=== PATIENT | female | born 1985 | race Caucasian/White ===

== ENCOUNTER 2018-08-12 22:38 | Emergency (ER) | payer MEDICAID ==
[2018-08-12] MEDS ORDERED: CEPHALEXIN 500 MG CAPSULE PO STA (22:56)
--- NOTE | 2018-08-12 22:56 | Emergency Department Record ---
History of Present Illness - General Chief complaint: Toothache Stated complaint: DENTAL PAIN/INFECTION Time Seen by Provider: 08/12/18 22:54 Source: Patient Mode of Arrival: Ambulatory Limitations: No limitations - History of Present Illness Initial comments: 32 yo female presents to ED for evaluation of pain and swelling to the right upper gingival for the past 2-3 days. Patient reports a history of a broken tooth to the affected area, denies fevers, chills, or recent trauma. Patient reports that she does not see a dentist her in the area. MD complaint: Tooth pain Onset/Timin -: Days(s) Location: Upper lip Severity: Moderate Severity scale (1-10): 7 Quality: Aching Consistency: Constant, Getting worse Improves with: Cold therapy Worsens with: Eating Context- Dental: History of dental caries, Poor dental care - Related Data Previous Rx's Medication Instructions Recorded Cephalexin [Keflex] 500 mg PO TID #20 cap 08/12/18 Travel Screening - Travel/Exposure Within Last 30 Days Have you traveled within the last 30 days?: No - Travel Symptoms Symptom Screening: None Review of Systems Constitutional: Denies: Chills, Fever, Malaise, Night sweats Eyes: Denies: Eye discharge, Eye pain ENT: Reports: Dental pain. Denies: Congestion, Ear pain Respiratory: Denies: Cough, Dyspnea Cardiovascular: Denies: Chest pain, Dyspnea on exertion Endocrine: Denies: Fatigue, Heat or cold intolerance Gastrointestinal: Denies: Abdominal pain, Vomiting Genitourinary: Denies: Incontinence, Retention Skin: Denies: Bruising, Change in color Neurological: Denies: Abnormal gait, Confusion, Headache, Seizure Psychiatric: Denies: Anxiety Hematological/Lymphatic: Denies: Anemia, Blood Clots Physical Exam - General General Appearance: Alert, Oriented x3, Cooperative, Moderate distress Limitations: No limitations - Head Head exam: Atraumatic, Normocephalic, Normal inspection Head exam detail: negative: Abrasion, Contusion, Liu's sign, General tenderness, Hematoma, Laceration - Eye Eye exam: Normal appearance. negative: Conjunctival injection, Periorbital swelling, Periorbital tenderness, Scleral icterus - ENT Ear exam: negative: Auricular hematoma, Auricular trauma Nasal Exam: negative: Active bleeding, Discharge, Dried blood, Foreign body Mouth exam: negative: Drooling, Laceration, Muffled voice, Tongue elevation Teeth exam: Gingival enlargement. negative: Dental caries, Dental tenderness # Image of Mouth/Teeth: 1 - Fractured tooth with mild gingival STS, no fluctuance present. - Neck Neck exam: Normal inspection. negative: Meningismus, Tenderness - Respiratory Respiratory exam: Normal lung sounds bilaterally. negative: Rales, Respiratory distress, Rhonchi, Stridor - Cardiovascular Cardiovascular Exam: Regular rate, Normal rhythm, Normal heart sounds - GI/Abdominal GI/Abdominal exam: Soft. negative: Rebound, Rigid, Tenderness - Rectal Rectal exam: Deferred - exam: Deferred - Extremities Extremities exam: Normal inspection. negative: Pedal edema, Tenderness - Back Back exam: Denies: CVA tenderness (R), CVA tenderness (L) - Neurological Neurological exam: Alert, Normal gait, Oriented X3 - Psychiatric Psychiatric exam: Normal affect, Normal mood - Skin Skin exam: Normal color. negative: Abrasion Type of lesion: negative: abrasion Course Vital Signs 08/12/18 22:46 Temperature 99.4 F Pulse Rate [ 99 H Pulse Ox Probe] Respiratory 20 Rate Blood Pressure 157/101 [Left Arm] Pulse Ox 97 - Reevaluation(s) Reevaluation #1: 08/12/18 23:00 Procedure Note: See nerve block note Patient reports almost immediate relief in her dental pain symptoms, appears stable for discharge on Keflex (numerous patient allergies). Dental referral sheet was given prior to discharge as well. Procedures - Nerve Block Consent Obtained: Verbal consent Time Out Performed: Yes Local Anesthetic Used: Marcaine 0.25% Amount of anesthesia used: 1.5 Side: Right Intraoral Nerve Block: Superior alveolar Procedure Successful: Yes Complications: None Patient Tolerated Procedure: Good Disposition Disposition: Discharge Clinical Impression: Dental abscess Disposition: Home, Self-Care Condition: (2) Stable Instructions: Dental Abscess (ED) Additional Instructions: Return to ED if your symptoms worsen or if you have any concerns. Keflex as directed. Follow-up with a dentist from the referral sheet in 1-3 days as directed. Prescriptions: Cephalexin [Keflex] 500 mg PO TID #20 cap Forms: Patient Portal Access Time of Disposition: 22:55 Quality - Quality Measures Quality Measures: N/A - Blood Pressure Screening Does Patient Have Any of the Following: No Blood Pressure Classification: Hypertensive Reading Systolic Measurement: 157 Diastolic Measurement: 101 Screening for High Blood Pressure: < First Hypertensive BP, F/U Documented > [ G8950] First Hypertensive Follow-up Interventions: Referral to alternative/primary care provider.
== END 2018-08-12 23:10 | disposition home or self-care (01) ==
LOC: ER 22:38
DX: K04.7 Periapical abscess without sinus (principal); F17.210 Nicotine dependence, cigarettes, uncomplicated
CPT/HCPCS: 64400; 99283

== ENCOUNTER 2018-09-27 22:30 | Emergency (ER) | payer MEDICAID ==
[2018-09-27] MEDS ORDERED: NEOMYCIN/POLYMYXIN B SULF/HC 10ML BTL OT ONE (22:40)
--- NOTE | 2018-09-27 22:41 | Emergency Department Record ---
History of Present Illness - General Chief complaint: ENT Stated complaint: EAR [email or web address].[email or web address] Time Seen by Provider: 09/27/18 22:39 Source: Patient Mode of Arrival: Ambulatory Limitations: No limitations - History of Present Illness Initial comments: 32 yo female presents to ED for evaluation of low-grade fevers and pain to the right ear that began several days ago. Patient denies drainage from the ear, and patient denies change in hearing. Patient did take Tylenol for her symptoms which did not significantly improve her symptoms. Patient reports pain with palpation to the pinna of the right ear as well as the tragus. MD complaint: Ear pain -: Days(s) Location: R ear Severity: Moderate Quality: Aching Consistency: Constant Improves with: Other (Tylenol) Worsens with: Other (palpation) - Related Data Previous Rx's Medication Instructions Recorded Cephalexin [Keflex] 500 mg PO TID #20 cap 08/12/18 Allergies Allergy/AdvReac Type Severity Reaction Status Date / Time amoxicillin Allergy HIVES Verified 08/12/18 23:00 Sulfa (Sulfonamide Allergy ANAPHYLAXIS Verified 08/12/18 23:00 Antibiotics) sulfamethoxazole Allergy ANAPHYLAXIS Verified 08/12/18 23:00 [From Bactrim] trimethoprim [From Bactrim] Allergy ANAPHYLAXIS Verified 08/12/18 23:00 desvenlafaxine [From Pristiq] AdvReac ITCHING Verified 08/12/18 23:01 erythromycin base AdvReac HIVES Verified 08/12/18 23:00 Penicillins AdvReac HIVES Verified 08/12/18 23:00 Review of Systems Constitutional: Denies: Chills, Fever, Malaise, Night sweats Eyes: Denies: Eye discharge, Eye pain ENT: Reports: Ear pain. Denies: Congestion, Epistaxis Respiratory: Denies: Cough, Dyspnea Cardiovascular: Denies: Chest pain, Dyspnea on exertion Endocrine: Denies: Fatigue, Heat or cold intolerance Gastrointestinal: Denies: Abdominal pain, Nausea, Vomiting Genitourinary: Denies: Incontinence, Retention Musculoskeletal: Denies: Arthralgia, Back pain Skin: Denies: Bruising, Change in color Neurological: Denies: Abnormal gait, Confusion, Headache, Seizure Psychiatric: Denies: Anxiety Hematological/Lymphatic: Denies: Anemia, Blood Clots Past Medical History - SOCIAL HISTORY Smoking Status: Heavy tobacco smoker (>10/day) Drug Use: None - RESPIRATORY Hx Respiratory Disorders: Yes Hx Asthma: Yes - CARDIOVASCULAR Hx Cardio Disorders: No - NEURO Hx Neuro Disorders: Yes Hx Dizziness: Yes (vertigo) Hx Headaches: Yes Hx Seizures: Yes (febrile seizure @ 1 year old) - GI Hx GI Disorders: Yes Hx Crohn's Disease: Yes Hx Obstructive Bowel: Yes (sm. bowel sx) - Hx Genitourinary Disorders: No - ENDOCRINE Hx Endocrine Disorders: No - MUSCULOSKELETAL Hx Musculoskeletal Disorders: Yes Comment:: scoliosis - PSYCH Hx Psych Problems: Yes Hx Anxiety: Yes Hx Behavior Problems: Yes (ADHD) Hx Depression: Yes Comment:: PTSD, bipolar, borderline personality disorder - HEMATOLOGY/ONCOLOGY Hx Hematology/Oncology Disorders: No Family Medical History Family Hx Comment (NOT TO BE USED IN PLACE OF ITEMS BELOW): mom-ulcerative colitis. father and brother ADHD. sister-"brittle bones" Hx Resp Disorders: Mother Physical Exam - General General Appearance: Alert, Oriented x3, Cooperative, Mild distress Limitations: No limitations - Head Head exam: Atraumatic, Normocephalic, Normal inspection Head exam detail: negative: Abrasion, Contusion, Liu's sign, General tenderness, Hematoma, Laceration - Eye Eye exam: Normal appearance. negative: Conjunctival injection, Periorbital swelling, Periorbital tenderness, Scleral icterus - ENT ENT exam: TM's normal bilaterally Ear exam: External canal tenderness (Right). negative: Auricular hematoma, Auricular trauma Nasal Exam: negative: Active bleeding, Discharge, Dried blood, Foreign body Mouth exam: negative: Drooling, Laceration, Muffled voice, Tongue elevation - Neck Neck exam: Normal inspection. negative: Meningismus, Tenderness - Respiratory Respiratory exam: Normal lung sounds bilaterally. negative: Rales, Respiratory distress, Rhonchi, Stridor - Cardiovascular Cardiovascular Exam: Regular rate, Normal rhythm, Normal heart sounds - GI/Abdominal GI/Abdominal exam: Soft. negative: Rebound, Rigid, Tenderness - Rectal Rectal exam: Deferred - exam: Deferred - Extremities Extremities exam: Normal inspection. negative: Pedal edema, Tenderness - Back Back exam: Denies: CVA tenderness (R), CVA tenderness (L) - Neurological Neurological exam: Alert, Normal gait, Oriented X3 - Psychiatric Psychiatric exam: Normal affect, Normal mood - Skin Skin exam: Normal color. negative: Abrasion Type of lesion: negative: abrasion Course - Reevaluation(s) Reevaluation #1: 09/27/18 22:48 No evidence for otitis media on examination No erythema or abscess present surrounding the pinna/right ear ? external canal tenderness on examination. Will treat with with Cortisporin ear qttps as directed. Patient appears stable for discharge at this time. Disposition Disposition: Discharge Clinical Impression: Otitis externa Qualifiers: Otitis externa type: unspecified type Chronicity: acute Laterality: right Qualified Code(s): H60.501 - Unspecified acute noninfective otitis externa, right ear Disposition: Home, Self-Care Condition: (2) Stable Instructions: Otitis Externa (ED) Additional Instructions: Return to ED if your symptoms worsen or if you have any concerns. Cortisporin drops as directed. Follow-up with your family doctor in 3-5 days as directed. Forms: Patient Portal Access Time of Disposition: 22:41 Quality - Quality Measures Quality Measures: N/A - Blood Pressure Screening Does Patient Have Any of the Following: No Blood Pressure Classification: Hypertensive Reading Systolic Measurement: 134 Diastolic Measurement: 114 Screening for High Blood Pressure: < First Hypertensive BP, F/U Documented > [ G8950] First Hypertensive Follow-up Interventions: Referral to alternative/primary care provider.
== END 2018-09-27 22:55 | disposition home or self-care (01) ==
LOC: ER 22:30
DX: H60.501 Unspecified acute noninfective otitis externa, right ear (principal); F17.210 Nicotine dependence, cigarettes, uncomplicated
CPT/HCPCS: 99282

== ENCOUNTER 2018-10-17 11:55 | Emergency (ER) | payer SELFPAY ==
[2018-10-17] MEDS ORDERED: DOXYCYCLINE HYCLATE 100 MG CAPSULE PO ONE (12:05)
--- NOTE | 2018-10-17 12:11 | Emergency Department Record ---
History of Present Illness - General Chief Complaint: Cough Stated Complaint: Cough, SOB, Flu like Time Seen by Provider: 10/17/18 12:05 Source: Patient, Family Mode of Arrival: Ambulatory - History of Present Illness Initial Comments: 32 yo female presents with cough, congestion, green sputum for about a week. She has underlying asthma and smokes. No blood in the sputum. No vomiting or diarrhea. Her TMax was 103 three days ago. No fever the last three days. No rash. She states it is sore to cough. No leg pain, calf pain or swelling. She does have her asthma medications at home. She did not have a flu shot this year. MD Complaint: Cough, Fever, Nasal congestion, Rhinorrhea Onset/Timin -: Days(s) (7) Severity: Moderate Severity scale (1-10): 9 Quality: Aching Consistency: Constant Improves With: Nothing Worsens With: Other (cough) Context: Sick contacts Associated Symptoms: Cough, Fever Treatments Prior to Arrival: None - Related Data Previous Rx's Medication Instructions Recorded Benzonatate [Tessalon] 2 cap PO Q8H PRN #20 cap 10/17/18 Doxycycline Hyclate 100 mg PO BID #14 tab. 10/17/18 Prednisone [Prednisone 20Mg] 20 mg PO BID #10 tab 10/17/18 Allergies Allergy/AdvReac Type Severity Reaction Status Date / Time amoxicillin Allergy HIVES Verified 10/17/18 12:05 escitalopram [From Lexapro] Allergy HIVES Verified 10/17/18 12:05 Sulfa (Sulfonamide Allergy ANAPHYLAXIS Verified 10/17/18 12:05 Antibiotics) sulfamethoxazole Allergy ANAPHYLAXIS Verified 10/17/18 12:05 [From Bactrim] trimethoprim [From Bactrim] Allergy ANAPHYLAXIS Verified 10/17/18 12:05 desvenlafaxine [From Pristiq] AdvReac ITCHING Verified 10/17/18 12:05 erythromycin base AdvReac HIVES Verified 10/17/18 12:05 Penicillins AdvReac HIVES Verified 10/17/18 12:05 Travel Screening - Travel/Exposure Within Last 30 Days Have you traveled within the last 30 days?: No - Travel/Exposure Within Last Year Have you traveled outside the [place] in the last year?: No - Additonal Travel Details Have you been exposed to anyone with a communicable illness?: No - Travel Symptoms Symptom Screening: None Review of Systems Constitutional: Reports: Chills, Fever, Malaise, Weakness Eyes: Denies: Eye discharge, Eye pain, Vision change ENT: Reports: Congestion. Denies: Ear pain, Throat pain Respiratory: Reports: Cough. Denies: Dyspnea, Hemoptysis, Stridor Cardiovascular: Reports: Chest pain (hurts to cough). Denies: Palpitations, Syncope Endocrine: Reports: Fatigue Gastrointestinal: Denies: Abdominal pain, Diarrhea, Nausea, Vomiting Genitourinary: Denies: Dysuria, Urgency Musculoskeletal: Denies: Arthralgia, Back pain, Joint swelling, Myalgia Skin: Denies: Bruising, Change in color, Rash Neurological: Denies: Headache Psychiatric: Denies: Anxiety Hematological/Lymphatic: Denies: Blood Clots, Easy bleeding, Easy bruising, Swollen glands Past Medical History - SOCIAL HISTORY Smoking Status: Heavy tobacco smoker (>10/day) Alcohol Use: Occasional Drug Use: None - RESPIRATORY Hx Respiratory Disorders: Yes Hx Asthma: Yes Hx Bronchitis: Yes Hx Pneumonia: Yes - CARDIOVASCULAR Hx Cardio Disorders: Yes Hx Hypertension: Yes (on and off) - NEURO Hx Neuro Disorders: Yes Hx Dizziness: Yes (vertigo) Hx Headaches: Yes Hx Seizures: Yes (febrile seizure @ 1 year old) - GI Hx GI Disorders: Yes Hx Crohn's Disease: Yes Hx Obstructive Bowel: Yes (sm. bowel sx) - Hx Genitourinary Disorders: No - ENDOCRINE Hx Endocrine Disorders: No - MUSCULOSKELETAL Hx Musculoskeletal Disorders: Yes Comment:: scoliosis - PSYCH Hx Psych Problems: Yes Hx Anxiety: Yes Hx Behavior Problems: Yes (ADHD) Hx Depression: Yes Comment:: PTSD, bipolar, borderline personality disorder - HEMATOLOGY/ONCOLOGY Hx Hematology/Oncology Disorders: No Family Medical History Any Significant Family History?: Yes Family Hx Comment (NOT TO BE USED IN PLACE OF ITEMS BELOW): mom-ulcerative colitis. father and brother ADHD. sister-"brittle bones" Hx Resp Disorders: Mother Physical Exam - General General Appearance: Alert, Oriented x3, Cooperative, No acute distress Limitations: No limitations - Head Head exam: Atraumatic, Normal inspection - Eye Eye exam: Normal appearance, PERRL. negative: Conjunctival injection, Scleral icterus - ENT ENT exam: Normal exam, Mucous membranes moist, Normal orophraynx, TM's normal bilaterally Ear exam: Normal external inspection Nasal Exam: Normal inspection. negative: Discharge Mouth exam: Normal external inspection Teeth exam: Normal inspection Throat exam: Normal inspection. negative: Tonsillar erythema, Tonsillomegaly, Tonsillar exudate, R peritonsillar mass, L peritonsillar mass - Neck Neck exam: Normal inspection. negative: Full ROM, Lymphadenopathy, Tenderness - Respiratory Respiratory exam: Normal lung sounds bilaterally, Other (Calm respirations, non labored, normal work of breathing). negative: Accessory muscle use, Chest wall tenderness, Decreased breath sounds, Prolonged expiratory, Respiratory distress , Rhonchi, Stridor, Wheezes - Cardiovascular Cardiovascular Exam: Regular rate, Normal rhythm, Normal heart sounds - GI/Abdominal GI/Abdominal exam: Soft. negative: Tenderness - Rectal Rectal exam: Deferred - exam: Deferred - Extremities Extremities exam: Normal inspection. negative: Tenderness - Back Back exam: Denies: CVA tenderness (R), CVA tenderness (L) - Neurological Neurological exam: Alert, Oriented X3 - Psychiatric Psychiatric exam: Normal affect, Normal mood - Skin Skin exam: Dry, Intact, Normal color, Warm Course Vital Signs 10/17/18 12:00 Temperature 98.7 F Pulse Rate 105 H Respiratory 18 Rate Blood Pressure 122/86 Pulse Ox 96 - Reevaluation(s) Reevaluation #1: 10/17/18 12:10 No fever or hypoxia in the ED Her work of breathing is normal Given her productive green sputum she will be treated with her productive Disposition Disposition: Discharge Clinical Impression: Bronchitis Disposition: Home, Self-Care Condition: (1) Good Instructions: Acute Bronchitis (ED) Additional Instructions: Call your doctor for the next available follow up appointment Return to the ER for a recheck if worse, any new concerns or questions Take the prescriptions provided as directed Review this ER visit and the tests performed with your family doctor Prescriptions: Benzonatate [Tessalon] 2 cap PO Q8H PRN #20 cap PRN Reason: Cough Doxycycline Hyclate 100 mg PO BID #14 tab. Prednisone [Prednisone 20Mg] 20 mg PO BID #10 tab Forms: Patient Portal Access Time of Disposition: 12:12 Quality - Quality Measures Quality Measures: N/A - Blood Pressure Screening Does Patient Have Any of the Following: No Blood Pressure Classification: Pre-Hypertensive BP Reading Systolic Measurement: 122 Diastolic Measurement: 86 Screening for High Blood Pressure: < Pre-Hypertensive BP, F/U Documented > [ G8950] Pre-Hypertensive Follow-up Interventions: Referral to alternative/primary care provider.
== END 2018-10-17 13:31 | disposition home or self-care (01) ==
LOC: ER 11:55
DX: J20.9 Acute bronchitis, unspecified (principal); R06.02 Shortness of breath; F17.210 Nicotine dependence, cigarettes, uncomplicated; I10 Essential (primary) hypertension
CPT/HCPCS: 99282; 99283